=== PATIENT | female | born 1960 | race Caucasian/White ===

== ENCOUNTER 2019-01-19 18:33 | Emergency (ER) | payer MEDICARE, SELFPAY ==
[~2019-01-19] VITALS: Ht 170.2 cm; Wt 65.9 kg
[~2019-01-19 18:33] MED LIST: ALBU8HFA IH; ARIP10TA8 PO; CLON.5 PO; DOCU-119 PO; ESCI10TA PO; ESOM40CA PO; FLUT220HFA IH; HC130O TP; HYDR-3422 PO; LUBI8CAP PO; MONT10TA21 PO; PREG50 PO; PREM625 PO; TOLT4CAP33 PO; TRAZ300T2 PO
[2019-01-19 20:03] LABS: BASOPHILS % (AUTO) 1.4 % (0.0-2.0); EOSINOPHILS % (AUTO) 9.1 % (1.0-6.0); HEMATOCRIT 36.6 % (36-46); HEMOGLOBIN 11.8 g/dL (12.0-16.0); LYMPHOCYTES # (AUTO) 0.8 K/uL (1.0-4.8); MEAN CORPUSCULAR HEMOGLOBIN 28.9 pg (26.0-34.0); MEAN CORPUSCULAR HGB CONC 32.3 G/dL (31.0-37.0); MEAN CORPUSCULAR VOLUME 89 fL (80-100); MONOCYTES # (AUTO) 0.7 K/uL (0.1-1.0); MONOCYTES % (AUTO) 33.1 % (2.0-9.0); NEUTROPHILS # (AUTO) 0.3 K/uL (1.8-7.7); NEUTROPHILS % (AUTO) 15.4 % (40.0-70.0); PLATELET COUNT (AUTO) 324 K/uL (150-450); RED CELL DISTRIBUTION WIDTH 17.4 % (11.5-14.5)
[2019-01-19] MEDS ORDERED: APIX5TAB PO (20:21)
[2019-01-19] MEDS ORDERED: BENZ0.5T44 PO (20:21)
[2019-01-19] MEDS ORDERED: OLAN5TAB2 PO (20:21)
[2019-01-19] MEDS ORDERED: TRAM50TA4 PO (20:21)
[2019-01-19] MEDS ORDERED: MULT1CAP32 PO (20:21)
[2019-01-19] MEDS ORDERED: ATOR10TA84 PO (20:21)
[2019-01-19] MEDS ORDERED: CYAN-11 IM (20:21)
[2019-01-19] MEDS ORDERED: LORA0.5T2 PO (20:21)
[2019-01-19] MEDS ORDERED: MELA5TAB3 PO (20:21)
[2019-01-19] MEDS ORDERED: FERR-89 PO (20:21)
[2019-01-19 20:26] LABS: ANION GAP 12 mmol/L (8-16); CALCIUM, TOTAL 9.4 mg/dL (8.8-10.5); CARBON DIOXIDE 23 mmol/L (22-29); CHLORIDE 108 mmol/L (98-107); CREATININE 0.94 mg/dL (0.60-1.30); GLOMERULAR FILTR. RATE CALC > 60 mL/min (>60); GLUCOSE,RANDOM 116 mg/dL (70-110); POTASSIUM 3.8 mmol/L (3.5-5.1); SODIUM SERUM 143 mmol/L (136-145); UREA NITROGEN, BLOOD 18 mg/dL (7-18)
[2019-01-19 20:31] LABS: ALANINE AMINOTRANSFERASE 18 U/L (12-78); ALBUMIN 3.3 g/dL (3.4-5.0); ALKALINE PHOSPHATASE 91 U/L (46-116); ASPARTATE AMINOTRANSFERASE 18 U/L (15-37); BILIRUBIN,TOTAL 0.3 mg/dL (0.1-1.0)
[2019-01-19 20:54] LABS: GLUCOSE,POINT OF CARE 115 MG/DL (70-110)
[2019-01-19 22:54] LABS: APPEARANCE,URINE CLEAR (CLEAR); BILIRUBIN,URINE NEGATIVE (NEGATIVE); GLUCOSE, URINE (UA) NEGATIVE (NEGATIVE); KETONES,URINE NEGATIVE (NEGATIVE); LEUKOCYTE ESTERASE ,URINE NEGATIVE (NEGATIVE); NITRATE,URINE NEGATIVE (NEGATIVE); OCCULT BLOOD,URINE NEGATIVE (NEGATIVE); PROTEIN,URINE NEGATIVE (NEGATIVE); UROBILINOGEN,URINE 0.2 mg/dL (<=1.0)
[2019-01-19 23:00] LABS: BACTERIA,URINE None Seen /HPF (None Seen); RBC,URINE None Seen /HPF (0-2); SQUAMOUS EPITHELIAL CELL,UR Rare /LPF (None Seen); WBC,URINE 0-2 /HPF (0-5)
[2019-01-19 23:03] LABS: AMPHET/METH SCREEN,URINE NEGATIVE (NEGATIVE); BARBITURATE SCREEN, URINE NEGATIVE (NEGATIVE); BENZODIAZEPINES SCREEN,URINE NEGATIVE (NEGATIVE); CANNABINOID SCREEN,URINE NEGATIVE (NEGATIVE); COCAINE SCREEN,URINE NEGATIVE (NEGATIVE); METHADONE SCREEN, URINE NEGATIVE (NEGATIVE); OPIATE SCREEN,URINE NEGATIVE (NEGATIVE)
[2019-01-19 23:29] LABS: PHENCYCLIDINE SCREEN,URINE NEGATIVE (NEGATIVE)
[2019-01-20 00:09] VITALS: BP 123/65
== END 2019-01-20 02:40 | disposition home or self-care (01) ==
LOC: EMS 18:36
DX: F32.9 Major depressive disorder, single episode, unspecified (principal); D72.819 Decreased white blood cell count, unspecified; F31.9 Bipolar disorder, unspecified; E11.9 Type 2 diabetes mellitus without complications; E78.00 Pure hypercholesterolemia, unspecified; I10 Essential (primary) hypertension; F20.9 Schizophrenia, unspecified; Z79.899 Other long term (current) drug therapy
CPT/HCPCS: 36415; 80053; 80307; 81001; 82962; 85025; 99284; G0480